=== PATIENT | female | born 1935 | race Caucasian/White ===

== ENCOUNTER 2018-04-09 14:21 | Observation (INO) ==
[2018-04-09] MEDS ORDERED: Ondansetron 4 MG/2 ML VIAL IVP ONE (15:11)
[2018-04-09] MEDS ORDERED: traMADol 50 MG TABLET PO ONE (15:11)
[2018-04-09] MEDS ORDERED: 0.9 % Sodium Chloride 1,000 ML IVC ONE (15:11)
[2018-04-09 16:15] LABS: Basophils % 0.2 %; Eosinophils % 0.4 %; Hematocrit 43.7 % (35.3-44.9); Hemoglobin 15.7 g/dL (11.5-15.4); Immature Granulocytes % 0.4 % (0-4); Lymphocytes # 1.5 K/mcL (0.6-4.6); Lymphocytes % 16.3 %; Mean Corpuscular HGB Conc 35.9 g/dL (31.6-35.5); Mean Corpuscular Hemoglobin 30.5 pg (28.0-33.3); Mean Corpuscular Volume 84.9 fL (83.0-100.0); Mean Platelet Volume 9.5 fL (9.4-12.4); Monocytes # 0.5 K/mcL (0.0-1.3); Monocytes % 5.9 %; Neutrophils # 6.9 K/mcL (1.6-8.9); Platelet Count 350 K/mcL (140-400); Red Blood Count 5.15 M/mcL (3.82-4.97); Red Cell Distribution Width 13.5 % (11.5-14.5); Segmented Neutrophils % 76.8 %
[2018-04-09 16:33] LABS: Alanine Aminotransferase 17 Units/L (7-52); Albumin 4.6 g/dL (3.5-5.7); Albumin/Globulin Ratio 1.6 (1.1-2.2); Alkaline Phosphatase 118 Units/L (34-104); Aspartate Amino Transferase 18 Units/L (13-39); BUN/Creatinine Ratio 12 (6-26); Bilirubin,Indirect 0.4 mg/dL (0.0-1.2); Bilirubin,Total 0.4 mg/dL (0.3-1.0); Blood Urea Nitrogen 9 mg/dL (8-23); Calcium 10.4 mg/dL (8.6-10.3); Carbon Dioxide 19 mEq/L (23-29); Chloride 94 mEq/L (98-107); Globulin 2.9 g/dL (2.4-3.5); Glucose 123 mg/dL (70-105); Lipase 59 Units/L (11-82); Osmolality,Calculated 252 (280-300); Potassium 4.6 mEq/L (3.5-5.1); Sodium 121 mEq/L (136-145); Total Protein 7.5 g/dL (6.4-8.9); eGFR For Non-African Americans > 60 (> 60)
[2018-04-09] MEDS ORDERED: Isovue-370 500 ML INFUS..BTL IV ONE (17:11)
[2018-04-09] MEDS ORDERED: *HR* OxyCODONE Immed Rel 5 MG TABLET PO ONE (17:19)
[2018-04-09] MEDS ORDERED: Acetaminophen 325 MG TABLET PO ONE (17:19)
--- NOTE | 2018-04-09 17:28 | Emergency Department Note ---
Disposition Clinical Impression: Hyponatremia, Weakness Disposition: Admitted As Inpatient Condition: Good Referrals: Scott Rosario DO [Primary Care Provider] - Forms: ED Satisfaction Letter, Work/School Release General Adult HPI - General Chief complaint: ED Abdominal Pain Stated complaint: Abdominal pain Source: patient, EMS Limitations: no limitations Nursing Notes Reviewed: Yes Vital Signs Reviewed: Yes - History of Present Illness HPI Narrative: Patient here for headache and abdominal pain. Patient states symptoms started last night when she ran out of her tramadol. She takes this for fibromyalgia. She states that symptoms been progressive in nature up until her presentation. She describes her headache is generalized and worse in the posterior occipital. Tenderness to palpation throughout the musculoskeletal system. She does have tenderness to palpation of her abdomen as well. It is generalized in nature. Patient has had nausea but no vomiting. She will be given IV fluid hydration as well as her daily tramadol and undergo some blood work investigation. Patient is improved secondary to her symptoms being related from medication withdrawal, she will be able to go home with a prescription. If her symptoms persist we find further reason to investigate will do so with further blood work and CT scans. Pain Scale: 5 - Related Data Home Medications Medication Instructions Recorded Confirmed Levothyroxine [Synthroid] 112 mcg PO 0630 07/05/16 04/09/18 Citalopram [CeleXA] 20 mg PO DAILY 04/09/18 04/09/18 Lisinopril [Zestril] 40 mg PO DAILY 04/09/18 04/09/18 Tramadol HCl [Ultram] 50 mg PO TID PRN 04/09/18 04/09/18 amLODIPine [Norvasc] 5 mg PO DAILY 04/09/18 04/09/18 Allergies Allergy/AdvReac Type Severity Reaction Status Date / Time tramadol Allergy See Verified 12/18/16 01:06 Comments hydrocodone [From Vicodin] AdvReac Rash Verified 07/05/16 08:09 Review of Systems: CONSTITUTIONAL: Weakness and fatigue No weight loss, fever, chills HEENT: Eyes: No visual changes. Ears, Nose, Throat: No hearing loss, difficulty talking or unable to swallow. SKIN: No rash or itching. CARDIOVASCULAR: No chest pain, chest pressure or chest discomfort. No palpitations or edema. RESPIRATORY: No shortness of breath, cough or sputum. GASTROINTESTINAL: Nausea and generalized abdominal pain. No anorexia, vomiting or diarrhea. GENITOURINARY: No burning on urination or hematuria. NEUROLOGICAL: Headache No dizziness, syncope, paralysis, ataxia, numbness or tingling in the extremities. No change in bowel or bladder control. MUSCULOSKELETAL: Generalized muscle aches Past Medical History - Past Medical History Medical history: Reports: arthritis, COPD, fibromyalgia, hyperlipidemia, hypertension Surgical history: Reports: thyroidectomy Psychiatric history: Reports: anxiety, depression - Social History Smoking Status: Current every day smoker Smokeless Tobacco Status: No Alcohol use: Reports: occasionally Drug use: Reports: none Physical Exam General: Well appearing, nontoxic, no acute distress Head: Normocephalic Atraumatic Eyes: PERRL, EOMI ENT: Airway patent, no stridor Neck: supple, no meningismus Chest: Lungs clear to auscultation bilateral Cardiac: Regular rate and rhythm, no murmurs, rubs or gallops Abdomen: soft, nontender, nondistended; no guarding, rebound, or tenderness to percussion Musculoskeletal: Calves symmetric, nontender, no palpable cord Skin: No rash, normal skin tone Neuro: Alert and Oriented to person, place; No focal deficit, CN 2-12 symmetric and intact - General Limitations: no limitations General appearance: alert Course - Reevaluation(s) Reevaluation #1: Patient with continued symptoms despite conservative management. Blood work does show hyponatremia 121. She does have a history of episodes of hyponatremia in the past. No specific etiology has been found. Patient is 83 years old and lives alone in her apartment. She feels too weak to go home at this time. Patient continues to complain of generalized pain. Headache in the occiput that radiates to the front patient will receive CT scans of her head as well as abdomen. Patient received 1 L of normal saline within the emergency department. Patient will be admitted for further evaluation and management. - Consultations Consultation #1: Discussed with hospitalist. Request repeat BMP as well as urine studies. Urine studies ordered. BMP ordered. Patient accepted for admission. Vital Signs Temperature 98 F 04/09/18 14:22 Pulse Rate 78 04/09/18 14:22 Respiratory Rate 22 04/09/18 14:22 Blood Pressure 156/76 04/09/18 14:22 O2 Sat by Pulse Oximetry 93 04/09/18 14:22 Temperature 98 F 04/09/18 14:22 Pulse Rate 98 04/09/18 16:40 Respiratory Rate 16 04/09/18 16:40 Blood Pressure 136/87 04/09/18 16:40 O2 Sat by Pulse Oximetry 95 04/09/18 16:40 Oxygen Delivery Oxygen Delivery Room Air Medical Decision Making - Medical Records Medical records reviewed: Yes I reviewed the patient's medical records. - Lab Data Lab results reviewed: Yes I reviewed the patient's lab results. Result diagrams: 04/09/18 15:33 04/09/18 15:33 Lab Results 04/09/18 04/09/18 04/09/18 Range/Units 15:33 15:33 16:45 WBC 9.0 (4.3-11.1) K/mcL RBC 5.15 H (3.82-4.97) M/mcL Hgb 15.7 H (11.5-15.4) g/dL Hct 43.7 (35.3-44.9) % MCV 84.9 (83.0-100.0) fL MCH 30.5 (28.0-33.3) pg MCHC 35.9 H (31.6-35.5) g/dL RDW 13.5 (11.5-14.5) % Plt Count 350 (140-400) K/mcL MPV 9.5 (9.4-12.4) fL Immature Gran % 0.4 (0-4) % Seg Neutrophils % 76.8 % Lymphocytes % 16.3 % Monocytes % 5.9 % Eosinophils % 0.4 % Basophils % 0.2 % Neutrophils # 6.9 (1.6-8.9) K/mcL Lymphocytes # 1.5 (0.6-4.6) K/mcL Monocytes # 0.5 (0.0-1.3) K/mcL Eosinophils # 0.0 (0.0-0.6) K/mcL Basophils # 0.0 (0.0-0.2) K/mcL Sodium 121 L (136-145) mEq/L Potassium 4.6 (3.5-5.1) mEq/L Chloride 94 L (98-107) mEq/L Carbon Dioxide 19 L (23-29) mEq/L BUN 9 (8-23) mg/dL Creatinine 0.75 (0.60-1.20) mg/dL Est GFR ( Amer) > 60 (> 60) Est GFR (Non-Af Amer) > 60 (> 60) BUN/Creatinine Ratio 12 (6-26) Glucose 123 H (70-105) mg/dL Calculated Osmolality 252 L (280-300) Calcium 10.4 H (8.6-10.3) mg/dL Total Bilirubin 0.4 (0.3-1.0) mg/dL Direct Bilirubin 0.0 (0.0-0.2) mg/dL Indirect Bilirubin 0.4 (0.0-1.2) mg/dL AST 18 (13-39) Units/L ALT 17 (7-52) Units/L Alkaline Phosphatase 118 H (34-104) Units/L Serum Total Protein 7.5 (6.4-8.9) g/dL Albumin 4.6 (3.5-5.7) g/dL Globulin 2.9 (2.4-3.5) g/dL Albumin/Globulin Ratio 1.6 (1.1-2.2) Lipase 59 (11-82) Units/L Urine Color Yellow (Yellow) Urine Clarity Clear (Clear) Urine pH 6.5 (5.0-8.0) pH Units Ur Specific [place] 1.015 (1.010-1.025) Urine Protein Negative (Neg-Trace) mg/dL Urine Glucose (UA) Normal (Normal) mg/dL Urine Ketones Negative (Negative) mg/dL Urine Blood Negative (Negative) Urine Nitrite Negative (Negative) Urine Bilirubin Negative (Negative) Urine Urobilinogen Normal (Normal) mg/dL Ur Leukocyte Esterase Trace H (Negative) Urine Microscopic RBC 3-5 H (0-3) per hpf Urine Microscopic WBC 0-3 (0-3) per hpf Ur Squamous Epith Cells Many H (None-Few) per lpf Urine Bacteria None Seen (None-Few) per hpf Hyaline Casts None Seen (None-Few) per lpf Ur Culture Indicated? NO. A (NO) - Radiology Data Radiology results reviewed: Yes I reviewed the patient's radiology results. - EKG Data EKG #1 EKG attestation: Yes I reviewed and interpreted this EKG. EKG results narrative: EKG shows atrial fibrillation with ventricular rate of 58. No significant elevations or depressions. No previous EKG for comparison.
[2018-04-09 17:34] LABS: Bilirubin,Urine Negative (Negative); Blood,Urine Negative (Negative); Clarity,Urine Clear (Clear); Color,Urine Yellow (Yellow); Glucose,Urine (UA) Normal (Normal); Ketones,Urine Negative (Negative); Leukocyte Esterase,Urine Trace (Negative); Nitrite,Urine Negative (Negative); PH,Urine 6.5 pH Units (5.0-8.0); Protein,Urine Negative (Neg-Trace); Specific Gravity,Urine 1.015 (1.010-1.025); Urobilinogen,Urine Normal (Normal)
[2018-04-09 17:39] LABS: Bacteria,Urine None Seen per hpf (None-Few); Hyaline Casts,Urine None Seen per lpf (None-Few); Squamous Epithelial Cell,Urine Many per lpf (None-Few); WBC,Urine 0-3 per hpf (0-3)
[2018-04-09 20:23] LABS: BUN/Creatinine Ratio 10 (6-26); Blood Urea Nitrogen 7 mg/dL (8-23); Calcium 9.8 mg/dL (8.6-10.3); Carbon Dioxide 19 mEq/L (23-29); Chloride 104 mEq/L (98-107); Glucose 125 mg/dL (70-105); Osmolality,Calculated 255 (280-300); Potassium 4.2 mEq/L (3.5-5.1); Sodium 123 mEq/L (136-145); eGFR For Non-African Americans > 60 (> 60)
--- NOTE | 2018-04-09 20:23 | Internal Med History&Physical ---
Date of Encounter: 04/10/18 Time of Encounter: 20:23 Internal Medicine - H&P: HPI Chief complaint: Headache and abdominal pain Admitted From: Emergency Dept Plans for Post Hospital Care: Home History of present illness: Ms. López is a 83 year old female with past medical history of fibromyalgia, hypothyroidism s/p thyroidectomy, hypertension, macular degeneration presented to [facility] ED complaining of headache and abdominal pain. She reported that yesterday she ran out of her tramadol that she takes for her fibromyalgia that helps alleviate the generalized body aches. Today she had worsened headache and body aches from not having her tramadol along with associated nausea, weakness and mild abdominal pain that she believes is gas. In the ED she is found to be hyponatremia with the sodium of 121 which the patient reported she has a history of hyponatremia which she has been told is because she drinks too much fluid, however she does not think she drinks too much fluid. She took salt tablets for a while after one hospitalization for hyponatremia where she was sent to a detention for rehab, but her PCP does not prescribe her salt supplementation. She denies fever, chills, loss of vision, chest pain, palpitations, shortness of breath, cough, vomiting, diarrhea , melena, hematechezia, dysuria, hematuria. She denies recent travel, sickness , hospitalization, trauma/fall. She has occurred smoker of 1/2 ppd/ 50-yrs. she has occasional beer but denies drug use. She is a family history of father having brain cancer, mother having bone cancer, brother having myocardial infarction. She is a DNR CCA. In the ED, she has found to be hyponatremia with sodium 121, potassium 4.6, serum osmolality 252, hemoglobin 15.7. Abdominal CT and head CT demonstrated no acute abnormality. Urinalysis unremarkable. She was given IV fluids. Urine sodium, urine osmolality, urine creatinine collected. Past Med Surg Social Fam HX - Past Medical History Attestation: Yes The following information was validated with the patient. Source: patient Medical history: arthritis, COPD, fibromyalgia, hyperlipidemia, hypertension Additional medical history: Fibromylgia. macular degeneration Psychiatric history: anxiety, depression - Past Surgical History Surgical History: thyroidectomy - Social History Smoking Status: Current every day smoker Smokeless Tobacco Status: No Alcohol use: occasionally Drug use: none - Family History Mother Hx Family Cardiac Disorders: Yes (hypertension) Hx Family Cancer: Yes (Bone cancer) Brother Hx Family Cardiac Disorders: Yes (Myocardial infarction) Father Hx Family Cancer: Yes (Brain cancer) Internal Medicine - H&P: Meds Levothyroxine [Synthroid] 112 mcg PO 0630 07/05/16 [History] Citalopram [CeleXA] 20 mg PO DAILY 04/09/18 [History] Lisinopril [Zestril] 40 mg PO DAILY 04/09/18 [History] Tramadol HCl [Ultram] 50 mg PO TID PRN 04/09/18 [History] amLODIPine [Norvasc] 5 mg PO DAILY 04/09/18 [History] 3 Allergy/AdvReac Type Severity Reaction Status Date / Time hydrocodone [From Vicodin] AdvReac Rash Verified 07/05/16 08:09 All Systems PM: A 10-system review of systems was performed and is negative for pertinent findings except as documented above in the HPI. - Constitutional Constitutional: weakness, no chills, no fever(s) - EENT Eyes: no change in vision - Cardiovascular Cardiovascular ROS IM: no chest pain, no diaphoresis, no edema, no palpitations , no syncope - Respiratory Respiratory: no cough, no dyspnea, no wheezing - Gastrointestinal Gastrointestinal: abdominal pain, nausea, no diarrhea, no melena, no vomiting - Genitourinary Genitourinary: no dysuria, no hematuria - Musculoskeletal Musculoskeletal ROS IM: arthralgias - Integumentary Integumentary IM: no erythema, no new lesions - Neurological Neurological ROS: headache(s) - Psychiatric Psychiatric: depression, no confusion - Endocrine Endocrine IM: fatigue - Constitutional Vitals: Temp Pulse Resp BP Pulse Ox 98 F 104 25 139/97 99 04/09/18 14:22 04/09/18 19:46 04/09/18 19:46 04/09/18 19:46 04/09/18 19:46 General appearance: Present: A&O X 3, pleasant, no acute distress - Head Head exam: Present: atraumatic, normal inspection - Eye Eye exam: Present: normal appearance, conjuntiva pink - Respiratory Respiratory exam: Present: CTAB. Absent: rales, rhonchi, wheezes - Cardiovascular Cardiovascular exam: Present: RRR, +S1, +S2, systolic murmur - GI/Abdominal GI/Abdominal exam: Present: normal bowel sounds, soft. Absent: firm, guarding, tenderness - Extremities Exam Extremities exam: Present: normal inspection, radial pulses palpable and symmetrical. Absent: pedal edema, tenderness - Neurological Exam Neurological exam: Present: alert, oriented X3 - Psychiatric Psychiatric exam: Present: normal affect, normal mood - Skin Skin exam: Present: dry, intact Internal Med - H&P Results - Labs CBC & Chem 7: 04/09/18 15:33 04/09/18 23:13 Labs: Short CBC 04/09/18 Range/Units 15:33 WBC 9.0 (4.3-11.1) K/mcL Hgb 15.7 H (11.5-15.4) g/dL Hct 43.7 (35.3-44.9) % Plt Count 350 (140-400) K/mcL Neutrophils # 6.9 (1.6-8.9) K/mcL BMP 04/09/18 15:33 Sodium 121 L Potassium 4.6 Chloride 94 L Carbon Dioxide 19 L BUN 9 Creatinine 0.75 Glucose 123 H Calcium 10.4 H Liver Function 04/09/18 Range/Units 15:33 Total Bilirubin 0.4 (0.3-1.0) mg/dL Direct Bilirubin 0.0 (0.0-0.2) mg/dL AST 18 (13-39) Units/L ALT 17 (7-52) Units/L Alkaline Phosphatase 118 H (34-104) Units/L Albumin 4.6 (3.5-5.7) g/dL Urine 04/09/18 Range/Units 16:45 Urine Color Yellow (Yellow) Urine Clarity Clear (Clear) Urine pH 6.5 (5.0-8.0) pH Units Ur Specific [place] 1.015 (1.010-1.025) Urine Protein Negative (Neg-Trace) mg/dL Urine Glucose (UA) Normal (Normal) mg/dL - Impressions ITS Impressions Abdomen/Pelvis CT 04/09/18 17:11 IMPRESSION: No CT evidence of acute intraabdominal process. Colonic diverticulosis. D/ / Boo Moura / Boo Moura Interpreting Provider: Boo Moura Head CT 04/09/18 17:20 IMPRESSION: No acute intracranial abnormality. Chronic microvascular ischemic changes. D/ / Boo Moura / Boo Moura Interpreting Provider: Boo Moura - Assessment and plan (1) Hyponatremia Current Visit: Yes Status: Acute Assessment and plan: Hypotonic hyponatremia. Sodium initially 121 > 123 moderate hyponatremia. This is likely chronic she appears euvolemic. She does not appear hypervolemic or hypovolemic she does not take diuretics or fluid overloaded. She is a well- balanced meals of protein, vegetables. Patient has a history of recurrent hyponatremia not taking salt supplementation. She has been told this is due to drinking too much fluids. -Low Serum osmolality 252 -creatinine 0.75 -urine sodium, urine osmolality, urine creatinine pending -plan to increase sodium with Max of 8meq increase in 24 hours -repeat BMP -IVF 500cc at 100ml/hr -free water restriction -consider salt tablets upon discharge with recommendations for PCP to monitor with BMP -will order TSH and freeT4 to evaluate levothyroxine is at appropriate dosage which may also cause hyponatremia if not (2) Weakness Current Visit: Yes Status: Acute Assessment and plan: Reported mild weakness likely secondary to hyponatremia (3) Hypothyroid Current Visit: Yes Status: Acute Assessment and plan: Hyperthyroidism status post thyroidectomy taking levothyroxine. Continue home medication Qualifiers: Qualified Code(s): E89.0 - Postprocedural hypothyroidism (4) Fibromyalgia Current Visit: Yes Status: Acute Assessment and plan: History fibromyalgia taking tramadol -continue home tramadol PRN (5) Depression Current Visit: Yes Status: Acute Assessment and plan: History of depression taking citalopram. continue home medication Qualifiers: Qualified Code(s): F32.9 - Major depressive disorder, single episode, unspecified (6) DVT prophylaxis Current Visit: Yes Status: Acute Assessment and plan: Heparin SQ - Time Spent With Patient Total time spent is greater than 50% in coordination of care (as documented) at patient's floor/unit and/or counseling patient:
[2018-04-09 20:24] LABS: Sodium, Urine 33.5 mEq/L
[2018-04-09] MEDS ORDERED: Naloxone 0.4 MG/ML INJ IVP PRN (20:54)
[2018-04-09] MEDS ORDERED: 0.9 % Sodium Chloride 500 ML IVC ONE (23:21)
[2018-04-09] MEDS: *HR* Heparin 5,000 UNIT/ML VIAL SQ SCH (23:57)
[2018-04-09] MEDS: traMADol 50 MG TABLET PO PRN (23:58)
[2018-04-10 00:05] LABS: BUN/Creatinine Ratio 11 (6-26); Blood Urea Nitrogen 7 mg/dL (8-23); Calcium 9.7 mg/dL (8.6-10.3); Carbon Dioxide 16 mEq/L (23-29); Chloride 100 mEq/L (98-107); Glucose 110 mg/dL (70-105); Osmolality,Calculated 261 (280-300); Potassium 4.1 mEq/L (3.5-5.1); Sodium 126 mEq/L (136-145); eGFR For Non-African Americans > 60 (> 60)
[2018-04-10] MEDS: *HR* Heparin 5,000 UNIT/ML VIAL SQ SCH (05:53)
[2018-04-10 07:16] LABS: Basophils % 0.2 %; Eosinophils # 0.1 K/mcL (0.0-0.6); Eosinophils % 1.4 %; Hematocrit 41.9 % (35.3-44.9); Hemoglobin 14.7 g/dL (11.5-15.4); Immature Granulocytes % 0.3 % (0-4); Lymphocytes % 22.7 %; Mean Corpuscular HGB Conc 35.1 g/dL (31.6-35.5); Mean Corpuscular Hemoglobin 30.1 pg (28.0-33.3); Mean Corpuscular Volume 85.9 fL (83.0-100.0); Mean Platelet Volume 9.6 fL (9.4-12.4); Monocytes # 0.7 K/mcL (0.0-1.3); Monocytes % 7.6 %; Platelet Count 347 K/mcL (140-400); Red Blood Count 4.88 M/mcL (3.82-4.97); Red Cell Distribution Width 13.9 % (11.5-14.5); Segmented Neutrophils % 67.8 %
[2018-04-10 07:28] LABS: BUN/Creatinine Ratio 9 (6-26); Blood Urea Nitrogen 6 mg/dL (8-23); Calcium 9.4 mg/dL (8.6-10.3); Carbon Dioxide 17 mEq/L (23-29); Chloride 103 mEq/L (98-107); Glucose 110 mg/dL (70-105); Osmolality,Calculated 266 (280-300); Potassium 3.9 mEq/L (3.5-5.1); Sodium 129 mEq/L (136-145); eGFR For Non-African Americans > 60 (> 60)
[2018-04-10 07:38] LABS: Thyroid Stimulating Hormone 2.578 mcIU/mL (0.340-5.600)
[2018-04-10] MEDS ORDERED: amLODIPine 5 MG TABLET PO SCH (09:00)
[2018-04-10] MEDS ORDERED: Lisinopril 20 MG TABLET PO SCH (09:00)
[2018-04-10] MEDS: traMADol 50 MG TABLET PO PRN (09:13)
[2018-04-10 11:15] VITALS: BP 128/74
--- NOTE | 2018-04-10 11:24 | Discharge Summary ---
<Jennie Way - Last Filed: 04/10/18 11:22> - NOTES TO OUTPATIENT PROVIDER Notes to Outpatient Provider: Ms. López presented to the ED complaining of abdominal pain and headache. She had CT of the head and the abdomen and they was no acute findings. She was found to have hyponatreamia and will be discharged with sodium tablets as it is chronic and her serum and urine studies suggest it is related to her tea and toast diet. She has an outpatient vice president regulatory appointment in two weeks. Orders not resulted at time of discharge: Pending orders 04/10/18 06:31 Cortisol,Random Routine Thyroid Stimulating Hormone AM 0400 Thyroxine (T4) Free AM 0400 Date of Encounter: 04/10/18 Time of Encounter: 11:00 - Discharge Diagnosis (1) Hyponatremia Priority: Primary Status: Acute (2) Weakness Priority: Secondary Status: Acute (3) Hypothyroid Priority: Secondary Status: Acute Qualifiers: Qualified Code(s): E89.0 - Postprocedural hypothyroidism (4) Depression Priority: Secondary Status: Acute Qualifiers: Qualified Code(s): F32.9 - Major depressive disorder, single episode, unspecified (5) DVT prophylaxis Priority: Secondary Status: Acute (6) Fibromyalgia Priority: Secondary Status: Acute Hospital course: Ms. López with past medical history of fibromyalgia, hypothyroidism s/p thyroidectomy, hypertension and macular degeneration. She presented to the ED due to headache and abdominal pain. She had not other complaints. She reported she ran out of her tramadol yesterday for her fibromyalgia and the pain is related her chronic fibromyalgia. She had a CT of the abdomen and there was no colonic obstruction noted. She was found to have hyponatremia on presentation which seems chronic as she was on salt tablets in the past. She has history of tea and toast diet. At presentation her sodium was 121, she received 500 ml of normal saline and her repeat sodium was 129. She has an outpatient appointment with a vice president regulatory and she will be discharged with sodium tablets. She is counseled on diet modification and reducing her intake of tea. Discharge discussed with: patient - Time Spent with Patient Total time spent providing and/or coordinating discharge services: - Discharge Medications Prescriptions: Sodium Chloride [Sodium Chloride Tab] 1 gm PO TID 30 Days #90 tablet Home Medications: Levothyroxine [Synthroid] 112 mcg PO 0630 07/05/16 [History] Citalopram [CeleXA] 20 mg PO DAILY 04/09/18 [History] Lisinopril [Zestril] 40 mg PO DAILY 04/09/18 [History] Tramadol HCl [Ultram] 50 mg PO TID PRN 04/09/18 [History] amLODIPine [Norvasc] 5 mg PO DAILY 04/09/18 [History] Sodium Chloride [Sodium Chloride Tab] 1 gm PO TID 30 Days #90 tablet 04/10/18 [ Rx] Allergies/Adverse Reactions: 3 Allergy/AdvReac Type Severity Reaction Status Date / Time hydrocodone [From Vicodin] AdvReac Rash Verified 07/05/16 08:09 Date of admission: 04/09/18 20:26 Primary care physician: Rafita Rosario DO Discharging clinician: Jennie Way Anticipated date of discharge: 04/10/18 - Constitutional Vitals: Temp Pulse Resp BP Pulse Ox 97.4 F L 79 15 128/74 93 04/10/18 11:12 04/10/18 11:12 04/10/18 11:12 04/10/18 11:12 04/10/18 11:12 General appearance: Present: A&O X 3, pleasant, no acute distress - Head Head exam: Present: atraumatic, normocephalic - Eye Eye exam: Present: EOMI, sclera anicteric - ENT ENT exam: Present: mucous membranes moist - Neck Neck exam general surgery: Present: full ROM, trachea midline - Respiratory Respiratory exam: Present: CTAB. Absent: rales, stridor, wheezes - Cardiovascular Cardiovascular exam: Present: RRR. Absent: clicks, gallop, JVD - GI/Abdominal GI/Abdominal exam: Present: soft. Absent: firm, guarding, rigid - Extremities Exam Extremities exam: Present: full ROM, warm. Absent: pedal edema, tenderness - Psychiatric Psychiatric exam: Present: normal affect, normal mood - Skin Skin exam: Present: dry, intact, warm - Patient Status Disposition: Home, Self-Care Condition: Good Overall status at discharge: patient is progressing back to baseline - Discharge Instructions Follow Up With: Scott Rosario DO [Primary Care Provider] - 04/27/18 9:30 am Joseph Shin DO [Partnered Physician] - 05/13/18 11:00 am (Due to recurrent hyponatremia. Tea and toast diet. Urine osmolarity is low. She admits to drinking a lot of tea daily. ) - Diet and Activity Activity: increase activity as tolerated Diet: regular diet <Sherri Suresh - Last Filed: 04/10/18 16:11> Date of Encounter: 04/10/18 - Discharge Diagnosis (1) Hyponatremia Status: Acute (2) Weakness Status: Acute (3) DVT prophylaxis Status: Acute (4) Hypothyroid Status: Acute Qualifiers: Qualified Code(s): E89.0 - Postprocedural hypothyroidism (5) Depression Status: Acute Qualifiers: Qualified Code(s): F32.9 - Major depressive disorder, single episode, unspecified (6) Fibromyalgia Status: Acute Hospital course: Ms. López is a 83 year old female - Time Spent with Patient Total time spent providing and/or coordinating discharge services: Date of admission: 04/09/18 20:26 Primary care physician: Rafita Rosario DO - Constitutional Vitals: Temp Pulse Resp BP Pulse Ox 97.4 F L 79 15 128/74 93 04/10/18 11:12 04/10/18 11:12 04/10/18 11:12 04/10/18 11:12 04/10/18 11:12 - Attending Attestation Patient was seen and examined. I agree with the discharge summary as dictated above by the resident physician. Discharge plans and recommendations were made under my direct supervision.
== END 2018-04-10 15:18 | disposition home or self-care (01) ==
LOC: EMEROO 14:21 → 3ANU 14:21
PROVIDERS: ADMIT Family Medicine; ATTEND Family Medicine